=== PATIENT | female | born 1980 | race Caucasian/White ===

== ENCOUNTER 2018-06-30 08:30 | Emergency (ER) | payer MEDICAID ==
[~2018-06-30] VITALS: Ht 162.6 cm; Wt 56.1 kg
[2018-06-30 08:33] VITALS: BP 121/66; PULSE 64; RESP 16; Ht 162.6 cm; Wt 56.1 kg
[2018-06-30] MEDS ORDERED: ACET325T33 PO (08:53)
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
== END 2018-06-30 09:58 | disposition home or self-care (01) ==
LOC: FTE 08:30
DX: O26.891 Other specified pregnancy related conditions, first trimester (principal); R10.2 Pelvic and perineal pain; O99.89 Other specified diseases and conditions complicating pregnancy, childbirth and the puerperium; M25.571 Pain in right ankle and joints of right foot; Z3A.08 8 weeks gestation of pregnancy
CPT/HCPCS: 99282